=== PATIENT | male | born 1980 ===

== ENCOUNTER 2023-11-15 05:30 | Day surgery (SDC) | payer OTHER ==
[2023-11-14 14:30] VITALS: BP 119/78
[~2023-11-15] VITALS: Ht 180.3 cm; Wt 89.8 kg
[2023-11-15] MEDS ORDERED: HEMOSTATIC MATRIX 1 KIT KIT TOP ONE (06:55)
[2023-11-15] MEDS ORDERED: BUPIVACAINE HCL 0.5% 50ML VIAL ONE (06:55)
[2023-11-15] MEDS ORDERED: DIBUCAINE 30 GM TUBE ONE (06:55)
[2023-11-15] MEDS ORDERED: CEFTRIAXONE SODIUM 2,000 MG VIAL ONE (06:59)
[2023-11-15] MEDS ORDERED: METRONIDAZOLE/SODIUM CHLORIDE 500 MG/100 ML PIGGYBACK IV ONE (06:59)
[2023-11-15] MEDS ORDERED: TAMSULOSIN HCL 0.4 MG CAP PO ONE ×2 (09:00→10:45)
[2023-11-15] MEDS ORDERED: OXYC1TAB9 PO (09:06)
== END 2023-11-15 11:50 | disposition home or self-care (01) ==
LOC: CIR.AMB 05:30
PROVIDERS: ATTEND Surgery
DX: K64.2 Third degree hemorrhoids (principal); K64.4 Residual hemorrhoidal skin tags; K62.89 Other specified diseases of anus and rectum; R00.1 Bradycardia, unspecified